=== PATIENT | female | born 1990 | race Caucasian/White ===

== ENCOUNTER 2020-04-09 15:33 | Outpatient (REF) | payer MEDICAID, SELFPAY | END 2020-04-09 15:34 | disposition home or self-care (01) | LOC: HO.LAB 15:33 | PROVIDERS: Visit Provider Internal Medicine | DX: Z20.828 Contact with and (suspected) exposure to other viral communicable diseases (principal) | CPT/HCPCS: C9803; U0003 ==

== ENCOUNTER 2020-09-17 12:45 | Outpatient (REF) | payer MEDICAID, SELFPAY ==
[2020-09-17 13:08] LABS: COVID-19 Test Negative (Negative); IDNOW Serial# 55D5AD1C
== END 2020-09-17 12:46 | disposition home or self-care (01) ==
LOC: HO.LAB 12:45
PROVIDERS: Visit Provider Internal Medicine
DX: Z20.822 Contact with and (suspected) exposure to COVID-19 (principal)
CPT/HCPCS: 36415; 87635; C9803

== ENCOUNTER 2020-10-12 17:30 | Emergency (ER) | payer MEDICAID, SELFPAY ==
[2020-10-12 17:36] VITALS: BP 135/72; PULSE 107; RESP 18; TEMP 36.9; O2SAT 99; BMI 28.3
--- NOTE | 2020-10-12 18:24 | ED_ITS ---
HPI - Allergic Reaction General Chief complaint: Allergic Reaction Stated complaint: allergic reaction Time Seen by Provider: 10/12/20 18:14 Source: patient and family Mode of arrival: ambulatory Limitations: no limitations History of Present Illness HPI narrative: 30 yo female recent procedure in [place] for 360 lipo and BBL she was put on clindamycin and bactrim post procedure and chlorhexidine wash, she is on lovenox and took some pineapple juice her mouth has itched in the past with pineapple fruit, she stopped the antibiotics a day or two early, no airway issues, rash is on trunk and hairline complaint: other (rash) Onset (ago): day(s) (2) Exposure: unknown, food and medication Symptoms: rash Severity: mild Treatment prior to arrival: none Previous Allergic Reaction History: none Related Data Allergies Allergy/AdvReac Type Severity Reaction Status Date / Time pineapple Allergy Rash Verified 10/12/20 17:42 Review of Systems Review of Systems: Constitutional : No Fever, No Chills ENT/Mouth : no oral swelling, No Hoarseness, No Swallowing Difficulty Eyes: No Eye Pain, No Swelling, No Redness Cardiovascular : No Chest Pain, No SOB Respiratory : No Cough, No Sputum, No Wheezing, No Smoke Exposure, No Dyspnea Gastrointestinal : No Nausea, No Vomiting, pos Diarrhea, No abdominal Pain Genitourinary : No Dysuria, No Urinary Frequency, No Hematuria Musculoskeletal : No joint pain, No Myalgias, No Joint Swelling Skin : No Skin Lesions, positive rash Neuro : No Weakness, No Numbness, No Headache Psych : No Anxiety/Panic, No Depression Heme/Lymph: No Bruising, No Lymphadenopathy Endocrine : No Polyuria, No Polydipsia All other systems reviewed and are negative [facility] Past Medical History Attestation statement: The following information was validated with the patient. Medical History Anxiety Depression Social History Social History (Updated 10/12/20 @ 18:31 by Madhuri Ivy DO) Alcohol intake: never Patient Tobacco Use Status: Never used Tobacco Patient : No Physical Exam Vital Signs: Vital Signs: Last Vital Signs Temp 98.4 F 10/12/20 17:36 Pulse 107 H 10/12/20 17:36 Resp 18 10/12/20 17:36 BP 135/72 10/12/20 17:36 Pulse Ox 99 10/12/20 17:36 Body Mass Index 28.3 Appearance: Alert. Oriented X3. No acute distress. Eyes: Pupils equal, round and reactive to light. ENT: Pharynx normal. Neck: Normal inspection. Neck supple. CVS: Normal heart rate and rhythm. Pulses normal. Respiratory: No respiratory distress. Breath sounds normal. Abdomen: Has binder on - erythematous discrete maculopapular rash noted on trunk and hairline, no lesions on mouth Skin: Skin warm and dry. Normal skin color. Normal skin turgor. Extremities: No lower extremity edema. No calf ttp Neuro: Oriented X 3. No motor deficit. No sensory deficit. MDM - Allergic Reaction MDM Narrative Medical decision making narrative: 30 yo female s/p lipo and BBL here with drug rash - on post op clinda and bactrim which is unusual double coverage for staph - she has stopped this, no airway involvement no mucosal lesions to suggest SJS - will instruct her to take pepcid/benadryl/zyrtec - she has no other complaints or concerns, loose stools but no incontinence to suggest c diff discussed probiotics, she is going to stop her proph abx her incisions are c/d/i and very small Discharge Plan Discharge Clinical Impression: Drug rash Patient Disposition: Home, Self-Care Instructions: Acute Rash (ED) Additional Instructions: return to ED for any worsening symptoms or concerns stop antibiotics take pepcid 20mg daily and benadryl as needed eery 6 hours or zyrtec daily probiotics help with diarrhea Referrals: Physician,None [Primary Care Provider] - 5 days (recheck with PCP in 5 days) Interventions: ED Discharge Assessment Last Done: 10/12/20 18:26
== END 2020-10-12 18:35 | disposition home or self-care (01) ==
LOC: HO.ED 18:35
PROVIDERS: Emergency Provider Emergency Medicine
DX: R21 Rash and other nonspecific skin eruption (principal)
CPT/HCPCS: 99282; 99283